=== PATIENT | female | born 1950 | race Caucasian/White ===

== ENCOUNTER → 2017-06-14 | Outpatient (CLI) | payer OTHER, MEDICARE | LOC: FIMAGING 14:56 | PROVIDERS: ATTEND Family Medicine | DX: Z12.31 Encounter for screening mammogram for malignant neoplasm of breast (principal) | CPT/HCPCS: G0202 ==

== ENCOUNTER → 2017-08-09 | Outpatient (CLI) | payer OTHER, MEDICARE | LOC: FIMAGING 10:17 | PROVIDERS: ATTEND Orthopaedic Surgery | DX: Z01.818 Encounter for other preprocedural examination (principal); M17.12 Unilateral primary osteoarthritis, left knee; M71.22 Synovial cyst of popliteal space [Baker], left knee ==

== ENCOUNTER 2017-08-12 09:15 | Inpatient (IN) | payer OTHER, MEDICARE ==
[~2017-08-12 09:15] MED LIST: ROPIVACAINE 0.2% 80 MG, EPINEPHrine 0.2 MG, KETOROLAC TROMETHAMINE 30 MG in SYRINGE 0 ML IU ONE; TRANEXAMIC ACID 3,000 MG in NS 50 ML IRR ONE
[2017-08-12] MEDS ORDERED: TRANEXAMIC ACID 3,000 MG/50 ML BAG IRR ONE (10:07)
[2017-08-12] MEDS ORDERED: VANCOMYCIN 1 GM VIAL ONE (10:08)
[2017-08-12] MEDS ORDERED: ceFAZolin 2 GM/SWFI 2 GM/20 ML SYR IVP ONE (11:27)
[2017-08-12] MEDS ORDERED: FAMOTIDINE 20 MG TAB PO ONE (11:27)
[2017-08-12] MEDS ORDERED: DEXAMETHASONE 4 MG/ML VIAL IVP ONE (11:27)
[2017-08-12] MEDS ORDERED: ACETAMINOPHEN 325 MG TAB PO ONE (11:27)
[2017-08-12] MEDS ORDERED: LR 1,000 ML IV ONE (11:29)
[2017-08-12] MEDS ORDERED: LIDOCAINE 1% 2 ML INJ ID PRN (11:29)
--- NOTE | 2017-08-12 11:34 | PDHPUP ---
History & Physical Update H&P update statement: This history and physical update is based on an assessment of the patient which was completed after admission or registration (within 24 hours), but prior to the surgery/procedure. H&P update: H&P reviewed & patient examined, no change in patient's condition since H&P completed
--- NOTE | 2017-08-12 11:57 | PDANEPAE ---
ANE History of Present Illness left TKA ANE Past Medical History - Cardiovascular History Hx Hypertension: No Hx Arrhythmias: No Hx Chest Pain: No Hx Coronary Artery / Peripheral Vascular Disease: No Hx CHF / Valvular Disease: No Hx Palpitations: No - Pulmonary History Hx COPD: No Hx Asthma/Reactive Airway Disease: No Hx Recent Upper Respiratory Infection: No Hx Oxygen in Use at Home: No Hx Sleep Apnea: No Sleep Apnea Screening Result - Last Documented: Negative - Neurologic History Hx Cerebrovascular Accident: No Hx Seizures: No Hx Dementia: No - Endocrine History Hx Diabetes: No - Renal History Hx Renal Disorders: No - Liver History Hx Hepatic Disorders: No - Neurological & Psychiatric Hx Hx Neurological and Psychiatric Disorders: Yes Neurological / Psychiatric History Comment: essntial tremor - Cancer History Hx Cancer: Yes Cancer History Comment: basal cell - Congenital Disorder History Hx Congenital Disorders: No - GI History Hx Gastrointestinal Disorders: No - Other Health History Other Health History: mild psorasis,knees and elbows. - Chronic Pain History Chronic Pain: Yes (lower back,right foot) - Surgical History Prior Surgeries: colonoscopy. knee scope ANE Review of Systems Review of systems is: negative Review of Systems: - Exercise capacity METS (RN): 4 METS ANE Patient History - Allergies Allergies/Adverse Reactions: cat dander Allergy (Verified 07/12/17 11:00) - Home Medications Home medications: home medication list seen and reviewed Home Medications: Cetirizine [ZyrTEC 10 mg (*)] 10 mg PO DAILY 07/12/17 [Last Taken 08/12/17] Cholecalciferol Vit D3 [Vitamin D3 (*)] 1,000 units PO DAILY 07/12/17 [Last Taken 07/29/17] Compounded Estradiol 0.4mg Gel 0.4 mg TP DAILY 07/12/17 [Last Taken 08/11/17] Meloxicam 7.5 mg PO BID 07/12/17 [Last Taken 08/05/17] Methotrexate Sodium [Rheumatrex 2.5 mg (RX)] 15 mg PO TH@07 07/12/17 [Last Taken 08/05/17] Garden-3 Fatty Acids [Fish Oil 1000 mg (*)] 1,000 mg PO DAILY 07/12/17 [Last Taken 07/29/17] Progesterone, Micronized [Progesterone] 100 mg PO HS 07/12/17 [Last Taken t-7] Propranolol HCl [Inderal 20mg (*)] 20 mg PO DAILY 07/12/17 [Last Taken 08/12/17] Remicade Iv 1 each IV .[id number] 07/12/17 [Last Taken 07/13/17] Tears/Dextran 70/Hypromellose [Natural Balance Tears (*)] 1 drop EACHEYE DAILY PRN 07/12/17 [Last Taken 08/11/17] - Anes Hx Anes Hx: no prior problems - Smoking Hx Smoking Status: Former smoker - Alcohol Use Alcohol Use: None - Family Anes Hx Family Hx Anesthesia Complications: none ANE Labs/Vital Signs - Vital Signs Height: 162.56 cm Weight: 68.039 kg ANE Physical Exam - Airway Neck exam: FROM Mallampati Score: Class 3 Mouth exam: small mouth opening - Pulmonary Pulmonary: no respiratory distress - Cardiovascular Cardiovascular: regular rate and rhythym - ASA Status ASA Status: II ANE Anesthesia Plan Anesthesia Plan: spinal Regional Anesthesia: single shot NB, adductor canal FNB
[2017-08-12] MEDS ORDERED: PROPOFOL/EMULSION 500 MG/50 ML BOTTLE IV ONE (12:06)
[2017-08-12] MEDS ORDERED: LIDOCAINE 2% 5 ML SDV ONE (12:10)
[2017-08-12] MEDS ORDERED: MIDAZOLAM 2 MG/2 ML VIAL ONE (13:21)
[2017-08-12] MEDS ORDERED: BUPIVACAINE 0.5% 30 ML SDV ONE (13:22)
[2017-08-12] MEDS ORDERED: MIDAZOLAM 2 MG/2 ML VIAL IVP ONE (13:32)
[2017-08-12] MEDS ORDERED: PROMETHAZINE HCL 25 MG SUPPR PR PRN (13:56)
[2017-08-12] MEDS ORDERED: LACTULOSE 20 GM/30 ML UDCUP PO PRN (13:56)
[2017-08-12] MEDS ORDERED: METOCLOPRAMIDE 10 MG/2 ML VIAL IVP PRN (13:56)
[2017-08-12] MEDS ORDERED: DIPHENOXYLATE/ATROPINE LOMOTIL 1 TAB PO PRN (13:56)
[2017-08-12] MEDS ORDERED: diphenhydrAMINE 25 MG CAP PO PRN (13:56)
[2017-08-12] MEDS ORDERED: ONDANSETRON 4 MG/2 ML VIAL IVP PRN ×2 (13:56→14:30)
[2017-08-12] MEDS ORDERED: TEMAZEPAM 15 MG CAP PO PRN (13:56)
[2017-08-12] MEDS ORDERED: PROMETHAZINE HCL 25 MG/ML INJ IVP PRN (13:56)
[2017-08-12] MEDS ORDERED: MAGNESIUM HYDROXIDE 30 ML UDCUP PO PRN (13:56)
[2017-08-12] MEDS ORDERED: BISACODYL 10 MG SUPP PR PRN (13:56)
[2017-08-12] MEDS ORDERED: ONDANSETRON DISINTEGRATING 4 MG TAB PO PRN (13:56)
[2017-08-12] MEDS ORDERED: CYCLOBENZAPRINE 10 MG TAB PO PRN (13:56)
[2017-08-12] MEDS ORDERED: POLYETHYLENE GLYCOL 3350 17 GM PKT PO PRN (13:56)
[2017-08-12] MEDS ORDERED: LR 1,000 ML IV SCH (14:00)
[2017-08-12] MEDS ORDERED: fentaNYL 100 MCG/2 ML INJ ONE (14:13)
[2017-08-12] MEDS ORDERED: ACETAMINOPHEN 500 MG TAB PO PRN (14:30)
[2017-08-12] MEDS ORDERED: LR 500 ML IV PRN (14:30)
[2017-08-12] MEDS ORDERED: OXYCODONE/APAP 5/325 TAB PO PRN (14:30)
[2017-08-12] MEDS ORDERED: HYDROCODONE/APAP 5/325 TAB PO PRN (14:30)
[2017-08-12] MEDS ORDERED: NALOXONE HCL 0.4 MG/ML INJ IVP PRN (14:30)
[2017-08-12] MEDS ORDERED: ALBUTEROL 3 ML DEYVIAL IH PRN (14:30)
[2017-08-12] MEDS ORDERED: fentaNYL 100 MCG/2 ML INJ IVP PRN (14:30)
[2017-08-12] MEDS ORDERED: HYDROmorphONE/DILAUDID 1 MG/ML INJ IVP PRN (14:30)
[2017-08-12] MEDS ORDERED: PROPOFOL 200 MG/20 ML VIAL ONE (14:39)
--- NOTE | 2017-08-12 15:20 | POSTANESTH ---
Post Anesthetic Evaluation Cardiovascular Status: Normal, Stable Respiratory Status: Normal, Stable Level of Consciousness/Mental Status: Can Participate in Eval, Alert and Oriented Pain Control: Adequate, Prn Tx Ordered Nausea/Vomiting Control: Adequate, Prn Tx Ordered Complications Possibly Related to Anesthesia: None Noted
--- NOTE | 2017-08-12 15:22 | POSTOPPROG ---
Post Op Note Date of Operation: 08/12/17 Surgeon: Edwin Johnson Cutting Machine Tender: Elysia Johnson PAc Anesthesiologist: Azucena Anesthesia: Spinal Pre-op Diagnosis: L knee djd Post-op Diagnosis: same Indication: pain Procedure: L TKA with robotic assist Findings: DJD knee Inf/Abcess present in the surg proc area at time of surgery?: No EBL: 50-100
[2017-08-12] MEDS: ACETAMINOPHEN 325 MG TAB PO SCH ×2 (18:31→23:57)
[2017-08-12] MEDS: OSELTAMIVIR PHOSPHATE 75 MG CAP PO SCH (19:00)
[2017-08-12] MEDS: ASPIRIN EC 81 MG TAB PO SCH (20:04)
[2017-08-12] MEDS: SENNOSIDES/DOCUSATE SODIUM TAB PO SCH (20:04)
[2017-08-12] MEDS: FAMOTIDINE 20 MG TAB PO SCH (20:04)
[2017-08-12] MEDS: oxyCODONE IR 5 MG TAB PO PRN ×2 (20:11→21:42)
[2017-08-12] MEDS: ceFAZolin 2 GM/DEXTROSE 100 ML IV SCH (21:34)
[2017-08-13] MEDS: oxyCODONE IR 5 MG TAB PO PRN ×4 (00:03→14:36)
[2017-08-13 05:20] VITALS: O2SAT 94
[2017-08-13] MEDS: ACETAMINOPHEN 325 MG TAB PO SCH ×2 (05:29→13:07)
[2017-08-13] MEDS: ceFAZolin 2 GM/DEXTROSE 100 ML IV SCH (05:30)
[2017-08-13] MEDS: ASPIRIN EC 81 MG TAB PO SCH (08:02)
[2017-08-13] MEDS: OSELTAMIVIR PHOSPHATE 75 MG CAP PO SCH (08:02)
[2017-08-13] MEDS: SENNOSIDES/DOCUSATE SODIUM TAB PO SCH (08:02)
[2017-08-13] MEDS: FAMOTIDINE 20 MG TAB PO SCH (08:03)
[2017-08-13 08:05] VITALS: PULSE 56
[2017-08-13] MEDS ORDERED: PROPRANOLOL HCL 20 MG TAB PO SCH (09:00)
--- NOTE | 2017-08-13 09:54 | ASMTCMCOM ---
CM Note CM Note Notes: Patient is POD #[address] Johnson. She is recovering well and has been cleared by PT/OT for home. Per patient, she has friends and family to help her at home. CM available if discharge needs arise. Date Signed: 08/13/2017 09:54 AM Electronically Signed By:Neda Griggs RN
--- NOTE | 2017-08-13 12:00 | SOAPPROG ---
SOAP Progress Note Assessment/Plan: Assessment: Patient is doing well POD 1 s/p L TKA pain is well controlled anemia: level expected initially postop VTE ppx: recommend aspirin 81 mg twice daily for 4 weeks postop D/c planning: d/c to home today influenza exposure: daughter recently tested positive for influenza A, started on tamiflu here in the hospital per request of family. sent script to pharmacy via [facility] EMR system. one dose once daily for prophylactic dosing. if patient has flu like symptoms, encouraged patient to take BID. nausea: mild nausea this morning, may be combination of tamiflu, oxycodone taken without food. encouraged patient to take with food and to space out between doses. Plan: 08/13/17 11:58 Subjective: Sivan is resting comfortably in bed, denies SOB, chest pain and vomiting. c/o nausea and fogginess of mind. Objective: Vital Signs Temp Pulse Resp BP Pulse Ox 36.8 C 56 L 18 129/78 H 94 08/13/17 08:00 08/13/17 08:01 08/13/17 08:00 08/13/17 08:01 08/13/17 08:00 Laboratory Results 08/13/17 05:08 08/12/17 08/13/17 08/14/17 05:59 05:59 05:59 Intake Total 1100 450 Output Total 1700 Balance -600 450 LLE: incision dressing is clean and dry, NVI, +pf/df ICD10 Worksheet Patient Problems: Problems Problem Status Onset Primary localized osteoarthritis of left knee Acute
[2017-08-13 13:11] VITALS: BP 155/94; RESP 16; TEMP 97.8
--- NOTE | 2017-08-13 15:09 | ASDISCHSUM ---
Discharge Information Plan Status:Home with No Needs Medically Cleared to Leave: Discharge Date:08/13/2017 02:49 PM CM D/C Disposition:Home, Routine, Self-Care ADT D/C Disposition:Home, Routine, Self-Care Projected Discharge Date:08/13/2017 02:49 PM Transportation at D/C:Family Discharge Delay Reason: Follow-Up Date:08/13/2017 02:49 PM Discharge Slot: Final Diagnosis: Placement Information Patient Contact Information Contact Name:ARSH Relationship:Daughter Address:[address] [place] City:[place] Alternate Phone: [facility]/Zip Code:[place] [address] Email: Financial Information Financial Class: Primary Plan Desc:MEDICARE INPATIENT Primary Plan Number:[id number] Secondary Plan Desc:[employer]/M[employer] SUPPLEMENT Secondary Plan Number:[id number] Assessment Information CM Button Pusher Assessment CJR Did you go to joint Answers: Yes class? CM Note CM Note Notes: Sivan is planning to discharge home. She stated that Dr. Johnson does not recommend home health care services for her, but she does not have transportation to get to outpatient physical therapies. She said she might be able to get friends to take her, so she will try this option first. I spoke with the case coordinator who stated we can provide the patient with cab vouchers, if needed. Sivan has a two story home and will be getting a walker for each floor. She also purchased a toilet seat raiser. Date Signed: 07/29/2017 12:33 PM Electronically Signed By:Amy Meade [facility] CM Progress Note CM Note CM Note Notes: Patient is POD #[address] Johnson. She is recovering well and has been cleared by PT/OT for home. Per patient, she has friends and family to help her at home. CM available if discharge needs arise. Date Signed: 08/13/2017 09:54 AM Electronically Signed By:Neda Griggs RN Intervention Information
--- NOTE | 2017-08-14 12:10 | GOP ---
[f rep st] OPERATIVE REPORT DATE OF OPERATION: 08/12/2017 SURGEON: Luiz Johnson MD NEEDLE LOOM OPERATOR HELPER: ABDIAZIZ Montalvo. ANESTHESIA: Spinal. PREOPERATIVE DIAGNOSIS: Left knee osteoarthritis. POSTOPERATIVE DIAGNOSIS: Left knee osteoarthritis. PROCEDURE PERFORMED: Left total knee arthroplasty with computer navigation, robotic assist. FINDINGS/PATHOLOGY: Severe medial and patellofemoral osteoarthritis. ESTIMATED BLOOD LOSS: 30 cc. INDICATIONS: The patient is a 66-year-old female with severe and progressive pain and deformity of the left knee unresponsive to conservative care. The risks and benefits of surgical intervention were explained in detail. DESCRIPTION OF PROCEDURE: The patient was brought to the operative room and placed on the table in the supine position. Spinal anesthesia was induced without difficulty. A pneumatic tourniquet was applied about the left proximal thigh, and the leg was prepped and draped in a sterile fashion. The leg jeter was applied. After exsanguination by elevation the tourniquet was inflated to 275 mm of mercury. Incision was made anterior medial from the tibial tuberosity to a point 2 cm proximal to the superior pole of the patella. Medial parapatellar arthrotomy was carried out from the superior pole of the patella and posteriorly in line with the fibers of the Type II VMO. The medial collateral ligament was elevated and the infrapatellar fat pad was resected. The patella was everted and the articular surface was excised. A 35 mm patellar button was placed. Attention was turned first to the distal aspect of the left femur. At 3 cm proximal to the medial rise of the femur, 2 percutaneous half pins were placed for fixation of the femoral array. In a similar fashion, 2 pins were placed anteromedial on the tibia for fixation of the tibial array. External land marking and registration of the hip center was performed without difficulty. Internal femoral and tibial registration was carried out without difficulty and the femoral and tibial checkpoints were placed and verified for accuracy. Attention was turned to the femur. The foot print for the size 3 femoral component was cut with the saw using the Texifter robotic system and verified for accuracy against the CT based plan. In a similar fashion, saw was used to cut the footprint for the size 4 tibial component using the Texifter system and verified for accuracy against the CT based plan. The tibial articular surface was excised without difficulty, followed by the intercondylar box cut. The knee was extended and the remnants of the medial and lateral meniscus were excised. The posterior capsule was injected with ropivacaine, epinephrine and Toradol. A size 4 tritanium tibial tray was positioned. Trial reduction was then carried out. There was excellent range of motion, alignment, and stability using the 9 mm polyethylene. All trials were then removed. The joint was thoroughly irrigated and carefully dried. The press fit components were implanted. The permanent 9 mm polyethylene was placed without difficulty. The tourniquet was deflated and all bleeders were coagulated. The wound was thoroughly irrigated and closed using interrupted sutures of 2-0 Vicryl for the joint capsule. The subcu was closed with 3-0 Vicryl and the skin with 4-0 Monocryl. Dermabond and Steri-Strips were applied followed by a compressive dressing. The patient was then moved from the operating room to the recovery room in good condition, having tolerated the procedure well. /[id number]/MODL MTDD
== END 2017-08-13 14:49 | disposition home or self-care (01) | DRG 470 ==
LOC: F3N 11:05
PROVIDERS: ADMIT Orthopaedic Surgery; ATTEND Orthopaedic Surgery
DX: M17.12 Unilateral primary osteoarthritis, left knee (principal); Z87.891 Personal history of nicotine dependence
CPT/HCPCS: 97161-GP; 97165-GO; G8978-GP-CI; G8979-GP-CI; G8980-GP-CI; G8987-GO-CI; G8988-GO-CI; G8989-GO-CI; J0171; J0690; J1100; J1885; J2250; J2704; J2795; J3010; J3370

== ENCOUNTER → 2017-10-07 | Outpatient (CLI) | payer OTHER, MEDICARE | LOC: FIMAGING 10:07 | PROVIDERS: ATTEND Family Medicine | DX: J20.9 Acute bronchitis, unspecified (principal) ==

== ENCOUNTER → 2018-07-20 | Outpatient (CLI) | payer OTHER, MEDICARE | LOC: FIMAGING 14:23 | PROVIDERS: ATTEND Physician Assistant | DX: Z13.820 Encounter for screening for osteoporosis (principal); M85.89 Other specified disorders of bone density and structure, multiple sites; Z78.0 Asymptomatic menopausal state; L40.50 Arthropathic psoriasis, unspecified; Z79.899 Other long term (current) drug therapy ==

== ENCOUNTER → 2018-08-02 | Outpatient (CLI) | payer OTHER, MEDICARE | END | disposition home or self-care (01) | LOC: FIMAGING 15:28 | PROVIDERS: ATTEND Physician Assistant | DX: Z12.31 Encounter for screening mammogram for malignant neoplasm of breast (principal); Z80.3 Family history of malignant neoplasm of breast ==